=== PATIENT | male | born 1985 | race Caucasian/White ===

== ENCOUNTER 2017-06-24 07:37 | Emergency (ER) | payer BC ==
[~2017-06-24] VITALS: Ht 185.4 cm; Wt 182.7 kg
[2017-06-24] MEDS ORDERED: LISI-661 PO (07:40)
[2017-06-24] MEDS ORDERED: CETI-290 PO (07:40)
[2017-06-24] MEDS ORDERED: GABA-531 PO (07:40)
[2017-06-24] MEDS ORDERED: DICL75TA5 PO (07:40)
[2017-06-24 07:55] VITALS: BP 164/87
[2017-06-24] MEDS ORDERED: ACETAMINOPHEN 500 MG TABLET PO ONE (08:30)
[2017-06-24] MEDS ORDERED: PredniSONE 20 MG TABLET PO ONE (08:30)
[2017-06-24 08:59] LABS: INFLUENZA TYPE B NEGATIVE FOR TYPE B (NEGATIVE)
== END 2017-06-24 09:48 | disposition home or self-care (01) ==
LOC: EMS 07:39
DX: J02.9 Acute pharyngitis, unspecified (principal); I10 Essential (primary) hypertension; Z88.0 Allergy status to penicillin; Z88.2 Allergy status to sulfonamides; Z88.1 Allergy status to other antibiotic agents
CPT/HCPCS: 87804; 99284; J7512